=== PATIENT | female | born 1990 | race Two or more races ===

== ENCOUNTER 2020-06-23 20:50 | Emergency (ER) | payer OTHER ==
[2020-06-23 21:09] VITALS: BP 138/96; PULSE 74; TEMP 98.7; BMI 28.5
[2020-06-23 21:49] LABS: BASO % 0.8 % (0-2.0); EOS % 1.2 % (0-4.5); HEMOGLOBIN 13.1 GM/dl (10.7-15.3); LYMPH % 24.1 % (8-40); MCH 30.3 pg (25.7-33.7); MCHC 32.9 g/dl (32.0-36.0); MEAN PLT VOLUME 9.3 fl (7.5-11.1); MONO % 5.3 % (3.8-10.2); NEUT % 68.6 % (42.8-82.8); PLATELET COUNT 336 K/MM3 (134-434); RBC 4.34 M/mm3 (3.60-5.2); RDW 12.1 % (11.6-15.6); WHITE BLOOD COUNT 7.3 K/mm3 (4.0-10.8)
[2020-06-23 21:55] LABS: ALBUMIN 3.9 g/dl (3.4-5.0); BILIRUBIN,TOTAL 0.2 mg/dl (0.2-1); CALCIUM 8.9 mg/dl (8.5-10); CREATININE 0.9 mg/dl (0.55-1.3); POTASSIUM 3.9 mmol/L (3.5-5.1); TOT PROT 7.1 g/dl (6.4-8.2)
[2020-06-24] MEDS ORDERED: SODIUM CHLORIDE 1,000 ML IV ONE (00:20)
== END 2020-06-24 01:40 | disposition home or self-care (01) ==
LOC: FER 20:50
PROC: 3E0337Z Introduction of Electrolytic and Water Balance Substance into Peripheral Vein, Percutaneous Approach (ICD-10-PCS; principal; 2020-06-23)
DX: R07.89 Other chest pain (principal)
CPT/HCPCS: 36415; 71275-TC; 80053; 81025; 85025; 85379; 96360; 99284-25; Q9967

== ENCOUNTER 2020-08-02 20:50 | Emergency (ER) | payer OTHER ==
[2020-08-02 20:55] VITALS: BP 147/94; PULSE 74; TEMP 98.1; BMI 28.5
[2020-08-02] MEDS ORDERED: KETOROLAC TROMETHAMINE 30 MG/1 ML VIAL IM ONE (21:00)
[2020-08-02] MEDS ORDERED: KETOROLAC TROMETHAMINE 30 MG/1 ML VIAL ONE (21:03)
== END 2020-08-02 23:03 | disposition home or self-care (01) ==
LOC: FER 20:50
PROC: 3E0233Z Introduction of Anti-inflammatory into Muscle, Percutaneous Approach (ICD-10-PCS; principal; 2020-08-02)
DX: M54.2 Cervicalgia (principal)
CPT/HCPCS: 70450-TC; 72125-TC; 96372; 99284-25